=== PATIENT | male | born 1940 | race Caucasian/White ===

== ENCOUNTER → 2020-05-28 | Outpatient (CLI) | payer MEDICARE ==
[~2020-05-28] MED LIST: CEFUROXIME500 MG PO; COL-RITE250 MG PO; FLOMAX0.4 MG PO; GLUCOPHAGE500 MG PO; GLUCOTROL 10 MG10 MG PO; HYDROCHLOROTHIA25 MG PO; LIPITOR TAB 2020 MG PO; VALIUM 5 MG TAB5 MG PO; VITAMIN C 250250 MG PO; VITAMIN D31000 UNI1 PO; ZESTRIL40 MG PO
== END ==
LOC: KOH-I 05-01 13:30
DX: E04.1 Nontoxic single thyroid nodule (principal)
CPT/HCPCS: 76536

== ENCOUNTER → 2021-02-01 | Outpatient (CLI) | payer MEDICARE | LOC: KOH-I 10:33 | DX: M25.561 Pain in right knee (principal); M25.562 Pain in left knee; G89.29 Other chronic pain; M17.0 Bilateral primary osteoarthritis of knee | CPT/HCPCS: 73564 ==

== ENCOUNTER 2021-11-19 16:25 | Emergency (ER) | payer MEDICARE ==
[2021-11-19] MEDS ORDERED: HYDROCODON-ACE1 EAC4 PO (21:54)
[2021-11-19] MEDS ORDERED: DULCOLAX5 MG PO (21:54)
== END 2021-11-19 21:59 | disposition home or self-care (01) ==
LOC: ER1 16:25
DX: S82.851A Displaced trimalleolar fracture of right lower leg, initial encounter for closed fracture (principal); E11.9 Type 2 diabetes mellitus without complications; I10 Essential (primary) hypertension; Z79.01 Long term (current) use of anticoagulants; Z86.711 Personal history of pulmonary embolism; W19.XXXA Unspecified fall, initial encounter; X50.9XXA Other and unspecified overexertion or strenuous movements or postures, initial encounter
CPT/HCPCS: 73610; 99283

== ENCOUNTER 2021-11-26 11:58 | Inpatient (IN) | payer OTHER ==
[~2021-11-26] VITALS: Ht 175.3 cm; Wt 99.8 kg
[~2021-11-26 11:58] MED LIST changes: +ATORVASTATIN CA80 MG PO; +DULCOLAX5 MG PO; +GLIPIZIDE10 MG PO; -GLUCOTROL 10 MG10 MG PO; +HYDROCODON-ACE1 EAC4 PO; -LIPITOR TAB 2020 MG PO; +LISINOPRIL20 MG PO; -ZESTRIL40 MG PO
[2021-11-26 14:10] LABS: HEMOGLOBIN 10.5 gm/dl (14.0-17.5); RED BLOOD COUNT 3.48 M/UL (4.20-5.50); WHITE BLOOD COUNT 7.8 K/UL (4.5-11.0)
[2021-11-26 14:27] LABS: BUN/CREATININE RATIO 29 (0-10)
[2021-11-26] MEDS ORDERED: VITAMIN D31250 MCG PO (14:53)
[2021-11-26] MEDS ORDERED: ACETAMINOPHEN-1 EAC1 PO (14:54)
[2021-11-26] MEDS ORDERED: GABAPENTIN300 MG PO (14:55)
[2021-11-26] MEDS ORDERED: PROSCAR 5 MG TAB5 MG PO (14:55)
[2021-11-26] MEDS ORDERED: ELIQUIS2.5 MG PO (14:55)
[2021-11-26] MEDS ORDERED: PREDNISONE10 M1 PO (14:59)
[2021-11-27 02:49] LABS: HEMOGLOBIN 9.9 gm/dl (14.0-17.5); RED BLOOD COUNT 3.25 M/UL (4.20-5.50)
[2021-11-27 03:24] LABS: BUN/CREATININE RATIO 27 (0-10)
[2021-11-28 02:09] LABS: HEMOGLOBIN 9.7 gm/dl (14.0-17.5); RED BLOOD COUNT 3.18 M/UL (4.20-5.50)
[2021-11-28 02:13] LABS: WHITE BLOOD COUNT 9.8 K/UL (4.5-11.0)
[2021-11-29 03:14] LABS: WHITE BLOOD COUNT 9.1 K/UL (4.5-11.0)
[2021-11-30 06:55] LABS: HEMOGLOBIN 10.1 gm/dl (14.0-17.5)
[2021-11-30 07:01] LABS: RED BLOOD COUNT 3.33 M/UL (4.20-5.50); WHITE BLOOD COUNT 5.3 K/UL (4.5-11.0)
[2021-11-30 07:11] LABS: BUN/CREATININE RATIO 31 (0-10)
--- NOTE | 2021-12-01 12:13 | NUR ---
REPORT CALLED TO AUBREY SORENSEN, PT MOVED TO ROOM 0900
[2021-12-01] MEDS ORDERED: LOPRESSOR 25 MG25 MG PO (12:17)
[2021-12-01] MEDS ORDERED: FOLIC ACID 1 MG1 MG PO (12:17)
[2021-12-01] MEDS ORDERED: ELIQUIS 5 MG TAB5 MG PO (12:17)
[2021-12-01] MEDS ORDERED: AMIODARONE HCL200 MG PO (12:17)
[2021-12-01] MEDS ORDERED: DOCUSATE SODIU100 MG PO (12:17)
[2021-12-01] MEDS ORDERED: LIPITOR40 MG PO (12:17)
[2021-12-01] MEDS ORDERED: HYDROCODON-ACE1 EAC4 PO (12:17)
[2021-12-01] MEDS ORDERED: FERROUS GLUCON324 M1 PO (12:17)
--- NOTE | 2021-12-01 14:58 | NUR ---
CHANGED PT DRESSING. CLEANED STITCHES WITH BETADINE. APPLIED OIL EMULSION. CLEANED HEEL WITH SALINE. APPLIED 4X4. WRAPPED RLE WITH KERLEX, APPLIED SPLINT, AND WRAPPED AGAIN WITH JOHN. PT TOLERATED WELL. WCTM .
--- NOTE | 2021-12-02 11:03 | NUR ---
LATE ENTRY 12/02/2021 1000 DRESSING CHANGED ON RIGHT LOWER EXTREMITY AT THIS TIME PER PATIENT REQUEST, PATIENT REPORTS THAT THE PREVIOUS RN ON SHIFT DIDN'T CHANGE DRESSING AND PATIENT REPORTS HE WOULD LIKE THE WOUND DRESSING CHANGED. PATIENT TOLERATED DRESSING CHANGE WELL AND DENIES ANY QUESTIONS OR CONCERNS.
[2021-12-02 12:24] LABS: HEMOGLOBIN 9.5 gm/dl (14.0-17.5); RED BLOOD COUNT 3.15 M/UL (4.20-5.50)
[2021-12-02 12:26] LABS: WHITE BLOOD COUNT 8.2 K/UL (4.5-11.0)
[2021-12-02 13:08] LABS: BUN/CREATININE RATIO 24 (0-10)
--- NOTE | 2021-12-02 14:55 | NUR ---
REPORT GIVEN TO FRANCHESCA YODER AT [facility]
== END 2021-12-02 15:01 | DRG 464 ==
LOC: M/S 11:58 → PROG CARE 11:58 → M/S 11-28 12:56
PROVIDERS: Internal Medicine; Physician Assistant; Podiatrist Foot & Ankle Surgery; ADMIT Internal Medicine Infectious Disease
PROC: 0SBF0ZZ Excision of Right Ankle Joint, Open Approach (ICD-10-PCS; 2021-11-27)
PROC: B24BZZ4 Ultrasonography of Heart with Aorta, Transesophageal (ICD-10-PCS; 2021-11-27)
PROC: 5A2204Z Restoration of Cardiac Rhythm, Single (ICD-10-PCS; 2021-11-27)
PROC: 0HRMXK3 Replacement of Right Foot Skin with Nonautologous Tissue Substitute, Full Thickness, External Approach (ICD-10-PCS; principal; 2021-11-27 13:00)
PROC: 0JBQ0ZZ Excision of Right Foot Subcutaneous Tissue and Fascia, Open Approach (ICD-10-PCS; 2021-11-27 13:00)
PROC: 0QSJ04Z Reposition Right Fibula with Internal Fixation Device, Open Approach (ICD-10-PCS; 2021-11-27 13:00)
PROC: 0QSG04Z Reposition Right Tibia with Internal Fixation Device, Open Approach (ICD-10-PCS; 2021-11-27 13:00)
PROC: 0SSF04Z Reposition Right Ankle Joint with Internal Fixation Device, Open Approach (ICD-10-PCS; 2021-11-27 13:00)
DX: S82.851A Displaced trimalleolar fracture of right lower leg, initial encounter for closed fracture (principal); E11.52 Type 2 diabetes mellitus with diabetic peripheral angiopathy with gangrene; N17.9 Acute kidney failure, unspecified; I96 Gangrene, not elsewhere classified; I48.0 Paroxysmal atrial fibrillation; D50.9 Iron deficiency anemia, unspecified; E78.5 Hyperlipidemia, unspecified; E53.8 Deficiency of other specified B group vitamins; M25.371 Other instability, right ankle; W01.0XXA Fall on same level from slipping, tripping and stumbling without subsequent striking against object, initial encounter; M81.0 Age-related osteoporosis without current pathological fracture; D63.8 Anemia in other chronic diseases classified elsewhere; N40.0 Benign prostatic hyperplasia without lower urinary tract symptoms; E11.40 Type 2 diabetes mellitus with diabetic neuropathy, unspecified; E66.01 Morbid (severe) obesity due to excess calories; Z85.46 Personal history of malignant neoplasm of prostate; Z86.711 Personal history of pulmonary embolism; Z79.01 Long term (current) use of anticoagulants; Z92.3 Personal history of irradiation; Z79.899 Other long term (current) drug therapy
CPT/HCPCS: ECHO; 36415; 71045; 73610; 76000; 80048; 80053; 82607; 82728; 82746; 82962; 83540; 83550; 83735; 84443; 85025; 85610; 87070; 93005; 93306; 93312; 93320; 93926; 96372; 97110; 97162; 97530; 97530-GP-CQ; C1713; G0378; G0379; J0690; J1100; J1170; J1650; J1756; J1885; J2001; J2250; J2370; J2405; J2704; J2795; J3010; J3370; Q4133

== ENCOUNTER → 2021-12-12 | Outpatient (CLI) | payer OTHER ==
[~2021-12-12] MED LIST changes: +ACETAMINOPHEN-1 EAC1 PO; +AMIODARONE HCL200 MG PO; +DOCUSATE SODIU100 MG PO; +ELIQUIS 5 MG TAB5 MG PO; +ELIQUIS2.5 MG PO; +FERROUS GLUCON324 M1 PO; +FOLIC ACID 1 MG1 MG PO; +GABAPENTIN300 MG PO; +LIPITOR40 MG PO; +LOPRESSOR 25 MG25 MG PO; +PREDNISONE10 M1 PO; +PROSCAR 5 MG TAB5 MG PO; +VITAMIN D31250 MCG PO
== END ==
LOC: KOH-I 09:40
DX: Z53.8 Procedure and treatment not carried out for other reasons (principal)
CPT/HCPCS: 73610